=== PATIENT | male | born 1945 | race Caucasian/White ===

== ENCOUNTER 2018-06-10 12:30 | Emergency (ER) | payer MEDICARE ==
[~2018-06-10] VITALS: Ht 152.4 cm; Wt 77.3 kg
[2018-06-10] MEDS ORDERED: [UNRECOGNIZED DRUG - REMARK] PO (12:36)
[2018-06-10] MEDS ORDERED: SODIUM CHLORIDE 0.9% 250 ML IRRIG SOLUTION BOTTLE IRRIG ONE (12:45)
[2018-06-10] MEDS ORDERED: GELATIN SPONGE,ABSORBABLE 50 MM TP ONE (12:45)
[2018-06-10] MEDS ORDERED: HYDROCODONE/ACETAMINOPHEN 5-325 MG TABLET PO ONE (12:45)
[2018-06-10] MEDS ORDERED: PERTUSS(ACELL),DIPH,TET VAC/PF 0.5 ML VIAL IM ONE (12:45)
[2018-06-10] MEDS ORDERED: GELATIN SPONGE,ABSORBABLE 100 MM TP ONE (13:15)
[2018-06-10] MEDS ORDERED: GENTAMICIN SULFATE 40 MG/ML 2 ML VIAL IM ONE (13:15)
[2018-06-10 15:05] VITALS: BP 130/81
== END 2018-06-10 15:12 | disposition home or self-care (01) ==
LOC: EMS 12:30
DX: S68.112A Complete traumatic metacarpophalangeal amputation of right middle finger, initial encounter (principal); I10 Essential (primary) hypertension; W22.8XXA Striking against or struck by other objects, initial encounter; Y93.89 Activity, other specified; Y92.89 Other specified places as the place of occurrence of the external cause; Y99.8 Other external cause status
CPT/HCPCS: 29130; 73140; 90471; 90715; 96372; 99283; J0690; J1580